=== PATIENT | male | born 1990 | race Caucasian/White ===

== ENCOUNTER 2018-09-15 20:04 | Emergency (ER) | payer OTHER ==
[~2018-09-15] VITALS: Ht 193 cm; Wt 115.7 kg
--- NOTE | 2018-09-15 20:39 | NUR ---
at bedside for MSE
[2018-09-15] MEDS ORDERED: ASPIRIN 81 MG TAB.CHEW PO ONE (20:45)
[2018-09-15] MEDS ORDERED: NITROGLYCERIN OINT 1 GM PACKET TP ONE ×2 (20:45→20:59)
[2018-09-15] MEDS ORDERED: CLONIDINE HCL 0.1 MG TABLET PO ONE (20:45)
--- NOTE | 2018-09-15 20:54 | NUR ---
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
[2018-09-15] MEDS ORDERED: ASPIRIN 81 MG TAB.CHEW ONE ×2 (20:59→21:02)
[2018-09-15] MEDS ORDERED: CLONIDINE HCL 0.1 MG TABLET ONE (21:00)
[2018-09-15 21:08] LABS: BASOPHILS # (AUTO) 0.1 K/uL (0.0-8.0); EOSINOPHILS % (AUTO) 0.1 % (0.0-7.0); HEMATOCRIT 48.4 % (36.7-47.1); HEMOGLOBIN 16.8 g/dL (12.5-16.3); LYMPHOCYTES # (AUTO) 1.7 K/uL (20.0-40.0); LYMPHOCYTES % (AUTO) 20.9 % (20.5-51.5); MEAN CORPUSCULAR HEMOGLOBIN 32.8 uug (23.8-33.4); MEAN CORPUSCULAR HGB CONC 35 g/dL (32.5-36.3); MEAN CORPUSCULAR VOLUME 94.7 fL (73.0-96.2); MONOCYTES # (AUTO) 0.8 K/uL (2.0-10.0); MONOCYTES % (AUTO) 9.7 % (0.0-11.0); NEUTROPHILS # (AUTO) 5.5 K/uL (1.8-8.9); NEUTROPHILS % (AUTO) 68.3 % (38.5-71.5); PLATELET COUNT (AUTO) 290 K/uL (152-348); RED BLOOD CELL COUNT(AUTO) 5.11 MIL/uL (4.06-5.63); WHITE BLOOD COUNT (AUTO) 8.1 K/uL (3.6-10.2)
[2018-09-15 21:09] LABS: CREATININE 1.1 mg/dL (0.6-1.3); POTASSIUM 3.3 mmol/L (3.5-5.1)
[2018-09-15 21:22] LABS: BILIRUBIN,DIRECT 0.3 mg/dL (0.0-0.2); BILIRUBIN,TOTAL 1.7 mg/dL (0.2-1.0); TOTAL PROTEIN, SERUM 7.9 g/dL (6.4-8.2)
[2018-09-15] MEDS ORDERED: POTASSIUM CHLORIDE 20 MEQ TAB.PRT.SR PO ONE (21:30)
[2018-09-15] MEDS ORDERED: POTASSIUM CHLORIDE 20 MEQ TAB.PRT.SR ONE (21:41)
--- NOTE | 2018-09-15 21:55 | NUR ---
Pt. resting in bed, IV patent - no s/s infiltration/phlebitis, NAD
--- NOTE | 2018-09-15 23:34 | NUR ---
Pt. resting in bed, IV patent/intact - no s/s infiltration/phlebitis,
--- NOTE | 2018-09-15 23:45 | NUR ---
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
[2018-09-16 00:21] VITALS: BP 131/84
== END 2018-09-16 00:24 | disposition home or self-care (01) ==
LOC: ER 20:04
DX: I10 Essential (primary) hypertension (principal); R07.2 Precordial pain
CPT/HCPCS: 36415; 70030-TC; 71045; 85025; 93005; A4663